=== PATIENT | male | born 1990 | race Caucasian/White ===

== ENCOUNTER 2020-02-05 22:55 | Emergency (ER) | payer OTHER ==
[~2020-02-05] VITALS: Ht 170.2 cm; Wt 77.1 kg
--- NOTE | 2020-02-05 23:30 | NUR ---
PT WAS BIBS TO THE HOSPITAL FOR C/O SI/HI AND PLANNING TO "DRINK TO " . PT ALERT AND COOPERATIVE AT THIS TIME. AMBULATORY TO BED 12. PT WAS GOWNED UP. ALL BELONGINGS WERE TAKEN AWAY AND WAS PLACED IN THE SAFE LOCKER . WAS PLACED ON A MONITOR W/ STABLE VS. PT REMAINED ON CLOSE SUPERVISION OF A SITTER FOR SAFETY AND SUICIDAL PRECAUTION . URINE COLLECTED. WILL CONT TO MONITOR ,
--- NOTE | 2020-02-05 23:51 | NUR ---
BLOOD WAS DRAWN BY [employer]. URINE SAMPLE SENT TO LAB.
--- NOTE | 2020-02-05 23:51 | NUR ---
DR BRYANT IS AT THE BEDSIDE SPEAKING TO THE PT.
[2020-02-05 23:55] LABS: BASOPHILS % (AUTO) 0.7 % (0.0-2.0); EOSINOPHILS % (AUTO) 2.4 % (0.0-6.0); HEMATOCRIT 40 % (39-51); HEMOGLOBIN 13.8 g/dL (13.5-17.5); LYMPHOCYTES # (AUTO) 1.8 /CMM (0.8-4.8); LYMPHOCYTES % (AUTO) 26.4 % (20.0-44.0); MEAN CORPUSCULAR HGB CONC 35 g/dl (31.0-36.0); MEAN CORPUSCULAR VOLUME 93 fL (80-96); MONOCYTES # (AUTO) 0.5 /CMM (0.1-1.30); MONOCYTES % (AUTO) 7.2 % (2.0-12.0); NEUTROPHILS # (AUTO) 4.3 /CMM (1.8-8.9); NEUTROPHILS % (AUTO) 63.3 % (43.0-81.0); PLATELET COUNT (AUTO) 192 /CMM (150-450); RED BLOOD CELL COUNT(AUTO) 4.29 MIL/uL (4.5-6.0); WHITE BLOOD COUNT (AUTO) 6.8 K/uL (4.3-11.0)
[2020-02-05 23:56] LABS: APPEARANCE,URINE Clear (CLEAR); BILIRUBIN,URINE Negative (NEGATIVE); BLOOD, URINE Negative Ery/uL (NEGATIVE); COLOR,URINE Yellow (YELLOW); KETONES,URINE Negative (NEGATIVE); LEUKOCYTE ESTERASE ,URINE Negative (NEGATIVE); NITRITE, URINE Negative (NEGATIVE); PROTEIN,URINE Negative (NEGATIVE); UGLUCOSE Negative (NEGATIVE); UROBILINOGEN,URINE 0.2 EU/dL (0.2)
[2020-02-06 00:03] LABS: CALCIUM, SERUM 8.4 mg/dL (8.5-10.1); CARBON DIOXIDE 29 mmol/L (21-32); CHLORIDE 107 mmol/L (98-107); CREATININE 1.1 mg/dL (0.6-1.3); GLUCOSE 118 mg/dL (74-106); POTASSIUM 4.2 mmol/L (3.5-5.1); SODIUM SERUM 142 mmol/L (136-145); UREA NITROGEN, BLOOD 19 mg/dL (7-18)
[2020-02-06 00:09] LABS: ACETAMINOPHEN 0 ug/ml (10-30); ALANINE AMINOTRANSFERASE 23 U/L (12-78); ALBUMIN 3.6 g/dL (3.4-5.0); ALCOHOL, BLOOD < 3 mg/dL (0-0); ALKALINE PHOSPHATASE 89 U/L (46-116); ASPARTATE AMINOTRANSFERASE 15 U/L (15-37); BILIRUBIN,DIRECT 0.1 mg/dL (0.0-0.2); BILIRUBIN,TOTAL 0.3 mg/dL (0.2-1.0)
[2020-02-06 00:17] LABS: SALICYLATE 0.8 mg/dL (2.8-20.0)
--- NOTE | 2020-02-06 00:35 | NUR ---
PT APPEARS TO BE SLEEPING COMFORTABLY WITH NO S/S OF PAIN OR DISTRESS. RESP ARE EVEN AND UNLABORED.
--- NOTE | 2020-02-06 02:20 | NUR ---
PT APPEARS TO BE SLEEPING SOUNDLY WITH NO S/S OF PAIN OR DISTRESS.
--- NOTE | 2020-02-06 04:11 | NUR ---
PT APPEARS TO BE SLEEPING SOUNDLY. PT IS EASILY AROUSED. RESP ARE EVEN AND UNLABORED. VSS. WILL CONTINUE TO MONITOR THE PT
--- NOTE | 2020-02-06 04:15 | NUR ---
REPORT GIVEN BY DR. BRYANT TO JAMIN SCHMIDT FROM [facility]
--- NOTE | 2020-02-06 04:23 | NUR ---
CALLED CALL THE [facility] FOR [facility]. ETA 60-90 MINUTES
--- NOTE | 2020-02-06 05:00 | NUR ---
PT APPEARS TO BE SLEEPING SOUNDLY. RESP ARE EVEN AND UNLABORED.
--- NOTE | 2020-02-06 05:46 | NUR ---
CALL [facility] ARRIVED. REPORT GIVEN RODRIGO MOULTON
[2020-02-06 05:53] VITALS: BP 105/58
--- NOTE | 2020-02-06 05:53 | NUR ---
PT'S BELONGINGS GIVEN TO EMT.
== END 2020-02-06 05:56 ==
LOC: ER 23:00
DX: F32.9 Major depressive disorder, single episode, unspecified (principal); R45.851 Suicidal ideations; F17.210 Nicotine dependence, cigarettes, uncomplicated; F20.9 Schizophrenia, unspecified; F41.9 Anxiety disorder, unspecified; Z90.89 Acquired absence of other organs
CPT/HCPCS: 36415; 80048; 80076; 80305; 80307; 80329; 81001; 85025; 99285; 99406; G0480; 81000-TC

== ENCOUNTER 2022-02-04 20:23 | Emergency (ER) | payer OTHER ==
[~2022-02-04] VITALS: Ht 170.2 cm; Wt 72.6 kg
[2022-02-04 21:35] LABS: BASOPHILS % (AUTO) 0.6 % (0.0-2.0); HEMATOCRIT 41 % (39-51); LYMPHOCYTES # (AUTO) 1.7 K/uL (0.8-4.8); LYMPHOCYTES % (AUTO) 23.5 % (20.0-44.0); MEAN CORPUSCULAR HGB CONC 34 g/dl (31.0-36.0); MEAN CORPUSCULAR VOLUME 92 fL (80-96); MONOCYTES # (AUTO) 0.7 K/uL (0.1-1.30); MONOCYTES % (AUTO) 10.4 % (2.0-12.0); NEUTROPHILS # (AUTO) 4.5 K/uL (1.8-8.9); NEUTROPHILS % (AUTO) 62.5 % (43.0-81.0); PLATELET COUNT (AUTO) 265 K/uL (150-450); RED BLOOD CELL COUNT(AUTO) 4.47 MIL/uL (4.5-6.0); WHITE BLOOD COUNT (AUTO) 7.2 K/uL (4.3-11.0)
[2022-02-04 21:59] LABS: BILIRUBIN,URINE NEGATIVE (NEGATIVE); COLOR,URINE YELLOW (YELLOW); LEUKOCYTE ESTERASE ,URINE NEGATIVE (NEGATIVE); NITRITE, URINE NEGATIVE (NEGATIVE); PROTEIN,URINE NEGATIVE (NEGATIVE); UGLUCOSE NEGATIVE (NEGATIVE); UROBILINOGEN,URINE 0.2 EU/dL (0.2)
[2022-02-04 22:03] LABS: CALCIUM, SERUM 7.9 mg/dL (8.5-10.1); CARBON DIOXIDE 26 mmol/L (21-32); CHLORIDE 107 mmol/L (98-107); CREATININE 1.1 mg/dL (0.6-1.3); GLUCOSE 107 mg/dL (74-106); POTASSIUM 4.1 mmol/L (3.5-5.1); SODIUM SERUM 138 mmol/L (136-145); UREA NITROGEN, BLOOD 13 mg/dL (7-18)
[2022-02-04 22:05] LABS: BACTERIA,URINE None seen /HPF (None Seen); RBC,URINE 0-2 /HPF (0-2); SQUAMOUS EPITHELIAL CELL,UR 0-2 /HPF (None Seen); WBC,URINE 0-2 /HPF (0-3)
[2022-02-04 22:06] LABS: ACETAMINOPHEN 3 ug/ml (10-30); ALANINE AMINOTRANSFERASE 36 U/L (12-78); ALBUMIN 2.9 g/dL (3.4-5.0); ALKALINE PHOSPHATASE 82 U/L (46-116); ASPARTATE AMINOTRANSFERASE 23 U/L (15-37); BILIRUBIN,DIRECT 0.1 mg/dL (0.0-0.2); BILIRUBIN,TOTAL 0.5 mg/dL (0.2-1.0); TOTAL PROTEIN, SERUM 5.4 g/dL (6.4-8.2)
[2022-02-04 22:07] LABS: ALCOHOL, BLOOD < 3 mg/dL (0-0)
[2022-02-04 22:15] VITALS: BP 139/72
--- NOTE | 2022-02-04 22:16 | NUR ---
PATIENT BIBRA 60 FROM [facility] C/O SI WITH PLAN, VOL PSYCH ADMIT. PATIENT IS A/O X 4 RR EVEN AND UNLABORED, NO SOB NOTED, VSS. NO ACUTE DISTRESS NOTED. PATIENT TAKEN TO ER BED 18, SECURITY WANDED PT, BELONGINGS TAKEN TO PT LOCKER, PT PLACED IN GOWN. WILL CONTINUE TO MONITOR.
[2022-02-04] MEDS ORDERED: CEPH500C2 PO (22:18)
--- NOTE | 2022-02-05 00:06 | NUR ---
FACESHEET AND CLINICALS FAXED TO [facility].
--- NOTE | 2022-02-05 02:09 | NUR ---
ACCPETED UNDER DOC DOMINIC HUMA DOAN, REPORT [phone]
--- NOTE | 2022-02-05 02:16 | NUR ---
[facility] ETA 20-30 MINUTES.
--- NOTE | 2022-02-05 02:17 | NUR ---
REPORT GIVEN TO BLACK
--- NOTE | 2022-02-05 02:39 | NUR ---
REPORT GIVEN TO EMS AT BEDSIDE
== END 2022-02-05 03:12 ==
LOC: ER 20:28
DX: R45.851 Suicidal ideations (principal)
CPT/HCPCS: 36415; 80048; 80076; 80143; 80307; 80320; 81001; 85025; 87426; 99285; C9803; G0480